=== PATIENT | male | born 1995 | race Caucasian/White ===

== ENCOUNTER 2020-05-07 01:34 | Emergency (ER) | payer SELFPAY ==
[~2020-05-07] VITALS: Ht 172.7 cm; Wt 80.3 kg
[2020-05-07 02:18] VITALS: Ht 172.7 cm; Wt 80.3 kg
[2020-05-07 03:11] VITALS: BP 133/65
== END 2020-05-07 03:11 | disposition home or self-care (01) ==
LOC: ED 01:34
DX: U07.1 COVID-19 (principal)
CPT/HCPCS: U0003-CS